=== PATIENT | male | born 1980 | race Caucasian/White ===

== ENCOUNTER 2017-07-15 12:58 | Emergency (ER) | payer SELFPAY ==
[2017-07-15 13:48] LABS: ADD MAN DIFF? NO
[2017-07-15 13:53] LABS: BASO % 0 % (0-3); EOS % 0 % (0-3); HEMATOCRIT 43.3 % (39.0-53.0); HEMOGLOBIN 14.7 g/dL (13.0-17.5); LYMPH # 1.6 x10^3/uL (1.0-4.8); LYMPH % 15 % (24-48); MEAN CORPUSCULAR HEMOGLOBIN 29 pg (25-35); MEAN CORPUSCULAR HGB CONC 34 g/dL (31-37); MEAN CORPUSCULAR VOLUME 86 fL (79-100); MONO # 0.6 x10^3/uL (0.0-1.1); MONO % 5 % (0-9); NEUT # 8.8 x10^3uL (1.8-7.7); NEUT % 79 % (31-73); PLATELET COUNT 222 x10^3/uL (140-400); RED BLOOD COUNT 5.02 x10^6/uL (4.30-5.70); RED CELL DISTRIBUTION WIDTH 13.6 % (11.5-14.5); WHITE BLOOD COUNT 11.1 x10^3/uL (4.0-11.0)
[2017-07-15 14:02] LABS: BILIRUBIN,URINE NEGATIVE (NEG); CLARITY,URINE CLOUDY; COLOR,URINE YELLOW; GLUCOSE,URINE NEGATIVE (NEG); NITRITE,URINE NEGATIVE (NEG); PROTEIN,URINE NEGATIVE (NEG-TRACE)
[2017-07-15 14:11] LABS: BACTERIA,URINE 0 /HPF (0-FEW); RBC,URINE 0 /HPF (0-2)
[2017-07-15 14:16] LABS: ALBUMIN 3.9 g/dL (3.4-5.0); ALK PHOS 90 U/L (46-116); ALT (SGPT) 86 U/L (16-63); ANION GAP 10 (6-14); AST (SGOT) 100 U/L (15-37); BLOOD UREA NITROGEN 12 mg/dL (8-26); CALCIUM 8.4 mg/dL (8.5-10.1); CARBON DIOXIDE 27 mmol/L (21-32); CHLORIDE 102 mmol/L (98-107); CREATININE 0.9 mg/dL (0.7-1.3); DIRECT BILIRUBIN 0.2 mg/dL (0.0-0.2); GFR 94.4; GLUCOSE 107 mg/dL (70-99); LIPASE 94 U/L (73-393); POTASSIUM 4.1 mmol/L (3.5-5.1); SODIUM 139 mmol/L (136-145); TOTAL BILIRUBIN 0.7 mg/dL (0.2-1.0); TOTAL PROTEIN 7.5 g/dL (6.4-8.2)
[2017-07-15 14:16] LABS: TROPONINI < 0.017 ng/mL (0.000-0.055)
[2017-07-15] MEDS: IV NORMAL SALINE 1000ML BAG 1,000 ML IV (14:36)
[2017-07-15] MEDS: LIDO:MAALOX:DONNATAL 1:1:1 15 ML SINGLE DOSE PO (14:37)
[2017-07-15 14:56] LABS: NT-PRO BNP 70 pg/mL (0-124)
[2017-07-15] MEDS: FAMOTIDINE 20 MG/2 ML VIAL IVP (14:56)
== END 2017-07-15 15:32 | disposition home or self-care (01) ==
LOC: ER 12:58
DX: G43.909 Migraine, unspecified, not intractable, without status migrainosus (principal); R10.13 Epigastric pain; F12.10 Cannabis abuse, uncomplicated; F17.200 Nicotine dependence, unspecified, uncomplicated
CPT/HCPCS: 36415; 76705; 80048; 80076; 81001; 83690; 83880; 84484; 85025; 93005; 96361; 96374; 99285-25; J7030; S0028

== ENCOUNTER 2018-08-24 15:13 | Emergency (ER) | payer SELFPAY ==
[~2018-08-24] VITALS: Ht 188 cm; Wt 102.1 kg
[~2018-08-24 15:13] MED LIST: FAMO40TA57 PO
[2018-08-24 16:30] VITALS: BP 168/89
[2018-08-24] MEDS ORDERED: SULF1TAB24 PO (16:34)
[2018-08-24] MEDS ORDERED: MUPI22OI2 TP (16:34)
--- NOTE | 2018-08-24 16:34 | PHYS DOC ---
Past Medical History Past Medical History: Migraines Past Surgical History: No Surgical History Alcohol Use: None Drug Use: Marijuana Adult General Chief Complaint Chief Complaint: INSECT BITE HPI HPI Patient is a 38 year old male who presents with draining ingrown hair abscess to his right equal. Patient states has small boil forearm 3 days ago which she is strain. Symptoms have since improved but centers still feels hard and swollen. No facial erythema, drainage, dental pain. No other acute symptoms or complaints. Denies history of MRSA. Patient states he is prone to ingrown facial hair. [] Review of Systems Review of Systems Review of symptoms as per history of present illness. All other review symptoms are negative. All other systems were reviewed and found to be within normal limits, except as documented in this note. Allergies Allergies Allergies Coded Allergies Type Severity Reaction Last Updated Verified No Known Drug Allergies 07/15/17 No Physical Exam Physical Exam Constitutional: Well developed, well nourished, no acute distress, non-toxic appearance. [] HENT: Normocephalic, atraumatic, bilateral external ears normal, 1 x 1 cm area of facial swelling overlying right anterior mandible, no erythema, no puncture wound consistent with previous draining abscess in her hair follicle. No lymphadenopathy streaking or weeping. [] Eyes: PERRLA, EOMI, conjunctiva normal, no discharge. [] Neck: Normal range of motion, no tenderness, supple, no stridor. [] Cardiovascular:Heart rate regular rhythm, no murmur [] Neurologic: Alert and oriented X 3, normal motor function, normal sensory function, no focal deficits noted. [] Psychologic: Affect normal, judgement normal, mood normal. [] EKG EKG [] Radiology/Procedures Radiology/Procedures [] Course & Med Decision Making Course & Med Decision Making Pertinent Labs and Imaging studies reviewed. (See chart for details) [Recommend empiric tx with PCP follow-up. Return precautions reviewed.] Dragon Disclaimer Dragon Disclaimer This electronic medical record was generated, in whole or in part, using a voice recognition dictation system. Departure Departure Impression: Primary Impression: Ingrown nail Disposition: 01 HOME, SELF-CARE Admitting Physician: Other Condition: GOOD Referrals: NO PCP (PCP) Patient Instructions: Ingrown Hair Additional Instructions: Take ibuprofen for pain and apply topical antibiotic three times daily. Start oral antibiotics for swelling and redness spreading away from ingrown hair. Follow-up with your PCP in 3-5 days for recheck. Scripts Mupirocin (MUPIROCIN OINTMENT) 22 Gm Oint...g. 1 DANAY TP TID for WOUND CARE, #1 TUBE Prov: HUANG KERNS DO 08/24/18 Sulfamethoxazole/Trimethoprim (BACTRIM DS TABLET) 1 Each Tablet 1 TAB PO BID, #20 TAB Prov: HUANG KERNS DO 08/24/18 HUANG KERNS DO August 24, 2018 16:34
== END 2018-08-24 17:05 | disposition home or self-care (01) ==
LOC: ER 15:13
DX: L73.1 Pseudofolliculitis barbae (principal); G43.909 Migraine, unspecified, not intractable, without status migrainosus
CPT/HCPCS: 99283